=== PATIENT | male | born 1990 | race Caucasian/White ===

== ENCOUNTER 2022-06-09 11:17 | Emergency (ER) | payer OTHER, MEDICARE ==
[2022-06-09] MEDS ORDERED: Amoxicillin/Potassium Clav 875 MG TAB ONE (11:37)
[2022-06-09] MEDS ORDERED: Bacitracin 1 PK ONE ×2 (11:54→11:55)
== END 2022-06-09 12:05 | disposition home or self-care (01) ==
LOC: MADERS 11:17
DX: S61.251A Open bite of left index finger without damage to nail, initial encounter (principal); S61.253A Open bite of left middle finger without damage to nail, initial encounter; F17.210 Nicotine dependence, cigarettes, uncomplicated; W54.0XXA Bitten by dog, initial encounter

== ENCOUNTER 2024-05-05 11:14 | Emergency (ER) | payer MEDICARE, SELFPAY ==
[2024-05-05 11:51] LABS: #Basophils 0.2 thou/uL (0.0-0.2); #Eosinophils 0.2 thou/uL (0.0-0.7); #Lymphocytes 1.8 thou/uL (1.20-3.40); #Monocytes 0.6 thou/uL (0.11-0.59); %Basophils 1.9 % (0.0-1.0); %Eosinophils 2.2 % (0.0-10.0); %Lymphocytes 16.9 % (21.0-51.0); %Monocytes 5.2 % (0.0-10.0); %Neutrophils 73.9 % (42.0-75.0); Hematocrit 51.7 % (42.0-52.0); Hemoglobin 16.4 g/dL (14.0-18.0); Mean Corpuscular HGB CONC 31.7 g/dL (32.0-36.0); Mean Corpuscular Volume 94.7 fl (78.0-98.0); Platelet Count 289 10x3/uL (130-400); RBC Distribution Width 11.7 % (11.5-14.5); Red Blood Cell (RBC) Count 5.45 mill/uL (4.70-6.10); White Blood Cell (WBC) Count 10.8 10x3/uL (4.8-10.8)
[2024-05-05 12:02] LABS: ALT (SGPT) 11 U/L (8-55); AST (SGOT) 15 U/L (5-34); Albumin 4.6 g/dL (3.5-5.0); Alkaline Phosphatase 65 U/L (40-110); Anion Gap 16 mmol/L (10-20); BUN (Urea Nitrogen) 8 mg/dL (8.9-20.6); Bilirubin, Total 0.8 mg/dL (0.2-1.2); CK (CPK) 118 U/L (30-200); Calc. Creatinine Clearance 0 mL/min (70-130); Calcium 9.6 mg/dL (7.8-10.44); Carbon Dioxide 23 mmol/L (22-29); Chloride 104 mmol/L (98-107); Estimated GFR 106; Globulin 3.2 g/dL (2.4-3.5); Glucose 110 mg/dL (70-105); Potassium 4.2 mmol/L (3.5-5.1); Protein, Total 7.8 g/dL (6.0-8.3); Sodium 139 mmol/L (136-145)
[2024-05-05 12:03] LABS: Acetaminophen Less than 10 mcg/mL (Less than 10); Alcohol Less than 10.0 mg/dL (Less than 10); Salicylate Less than 8.0 mg/dL (Less than 8.0)
[2024-05-05] MEDS ORDERED: Nicotine 7 MG PATCH ONE (12:16)
[2024-05-05 12:34] LABS: Bilirubin Negative (Negative); Blood, Urine Negative (Negative); Glucose, Urine (Dipstick) Negative (Negative); Ketone, Urine Trace mg/dL (Negative); Leukocyte Negative (Negative); Nitrite Negative (Negative); Protein, Urine (Dipstick) Negative (Neg-Trace); Specific Gravity, Urine 1.015 (1.005-1.030); Urobilinogen 0.2 mg/dL (Less than 2); pH, Urine 6.5 (5.0-9.0)
[2024-05-05 12:41] LABS: Amphetamine Not Detected (NotDetected); Barbiturates Screen Not Detected (NotDetected); Benzodiazepine Screen Not Detected (NotDetected); Cocaine Metabolite Screen Not Detected (NotDetected); Methadone Not Detected (NotDetected); Methamphetamine Not Detected (NotDetected); Opiate Screen Not Detected (NotDetected); Oxycodone Screen Not Detected (NotDetected); Phencyclidine (PCP) Not Detected (NotDetected); THC/Cannabinoid Screen Detected (NotDetected); Tricyclic Screen Not Detected (NotDetected)
[2024-05-05 12:42] LABS: Clarity Hazy (Clear)
[2024-05-05 12:47] LABS: Bacteria/HPF Rare-Few HPF (None Seen); CAUTI Indications for Culture Dysuria,urgency,freq; RBC/HPF 0-3 HPF (0-3); Squamous Epithelial 0-3 HPF (0-3); WBC/HPF None Seen HPF (0-3)
[2024-05-05 12:48] LABS: Urine Culture Reflex No No
== END 2024-05-05 16:44 ==
LOC: MADERS 11:14
DX: R45.851 Suicidal ideations (principal); F43.10 Post-traumatic stress disorder, unspecified; F32.9 Major depressive disorder, single episode, unspecified; F17.210 Nicotine dependence, cigarettes, uncomplicated
CPT/HCPCS: 36415; 80053; 80306; 80307; 81001; 82550; 84443; 85025; 93005; 99285

== ENCOUNTER 2025-04-17 14:23 | Emergency (ER) | payer MEDICARE ==
[~2025-04-17 14:23] MED LIST: Iopamidol 370 76% 100 ML VIAL ONE
[2025-04-17 15:03] LABS: #Basophils 0.2 thou/uL (0.0-0.2); #Eosinophils 0.1 thou/uL (0.0-0.7); #Lymphocytes 2.8 thou/uL (1.20-3.40); #Monocytes 0.6 thou/uL (0.11-0.59); #Neutrophils 6.1 thou/uL (1.40-6.50); %Basophils 1.8 % (0.0-1.0); %Eosinophils 1.3 % (0.0-10.0); %Lymphocytes 28.4 % (21.0-51.0); %Monocytes 6.2 % (0.0-10.0); %Neutrophils 62.3 % (42.0-75.0); Hematocrit 49.9 % (42.0-52.0); Hemoglobin 16.2 g/dL (14.0-18.0); Mean Corpuscular Hemoglobin 30.3 pg (27.0-31.0); Mean Corpuscular Volume 93.5 fl (78.0-98.0); Platelet Count 270 10x3/uL (130-400); Red Blood Cell (RBC) Count 5.33 mill/uL (4.70-6.10); White Blood Cell (WBC) Count 9.9 10x3/uL (4.8-10.8)
[2025-04-17 15:06] LABS: INR-International Normal Ratio 1.0; Prothrombin Time 12.8 sec (12.0-14.7)
[2025-04-17 15:07] LABS: PTT 27.6 sec (22.9-36.1)
[2025-04-17 15:16] LABS: ALT (SGPT) 9 U/L (Less than 45); AST (SGOT) 28 U/L (11-34); Albumin 4.9 g/dL (3.1-4.5); Alkaline Phosphatase 63 U/L (40-110); Anion Gap 20 mmol/L (10-20); BUN (Urea Nitrogen) 7 mg/dL (8.9-20.6); Bilirubin, Total 0.4 mg/dL (0.3-1.2); Calc. Creatinine Clearance 0 mL/min (70-130); Calcium 9.4 mg/dL (7.8-10.44); Carbon Dioxide 22 mmol/L (22-29); Chloride 101 mmol/L (98-107); Globulin 3.1 g/dL (2.4-3.5); Glucose 115 mg/dL (70-105); Potassium 4.0 mmol/L (3.5-5.1); Sodium 139 mmol/L (136-145)
== END 2025-04-17 17:30 | disposition home or self-care (01) ==
LOC: MADERS 14:23
DX: S42.021A Displaced fracture of shaft of right clavicle, initial encounter for closed fracture (principal); S42.111A Displaced fracture of body of scapula, right shoulder, initial encounter for closed fracture; F17.210 Nicotine dependence, cigarettes, uncomplicated; V28.01XA Electric (assisted) bicycle driver injured in noncollision transport accident in nontraffic accident, initial encounter
CPT/HCPCS: 70450; 71260; 72125; 74177; 80053; 85025; 85610; 85730; 96374; 96376; J2270; Q9967